=== PATIENT | female | born 1935 | race Caucasian/White ===

== ENCOUNTER 2018-12-29 21:53 | Emergency (ER) | payer MEDICARE ==
[~2018-12-29 21:53] MED LIST: oxyCODONE-APAP 10-325MG 1 EACH TAB PO ONE
--- NOTE | 2018-12-29 22:09 | ED ---
Back Pain HPI - General Chief Complaint: Back Pain/Injury Stated Complaint: Back Pain Time Seen by Provider: 12/29/18 22:02 Source: patient, RN notes reviewed, old records reviewed Limitations: no limitations - History of Present Illness Initial Comments: This is an 83-year-old female the ER for evaluation presents today for evaluation of pain back pain. No history of trauma. No loss of bowel or bladder. No fevers. 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 Otherwise no other significant complaints no other injuries or trauma MD Complaint: back pain, back injury -: days(s) Similar Symptoms Previously: No Place: home Radiation: none Severity: moderate Severity scale (1-10): 4 Quality: dull, aching Improves With: none Worsens With: none Context: while lifting, turning/twisting Associated Symptoms: denies other symptoms - Related Data Home Medications Medication Instructions Recorded Confirmed Losartan [Cozaar] 50 mg PO HS 12/29/18 12/29/18 Previous Rx's Medication Instructions Recorded Cephalexin [Keflex] 500 mg PO Q8HR #21 cap 01/03/19 Ondansetron Odt [Zofran Odt] 4 mg PO Q8HR PRN #12 tab 01/03/19 Phenazopyridine [Pyridium] 100 mg PO TID #9 tablet 01/03/19 Allergies Allergy/AdvReac Type Severity Reaction Status Date / Time bee venom protein (honey bee) Allergy Anaphylaxis Verified 12/29/18 22:53 Penicillins Allergy Swelling Verified 12/29/18 22:53 Review of Systems ROS Statement: Those systems with pertinent positive or pertinent negative responses have been documented in the HPI. ROS Other: All systems not noted in ROS Statement are negative. Past Medical History Past Medical History: Hypertension History of Any Multi-Drug Resistant Organisms: None Reported Past Surgical History: Hysterectomy Past Psychological History: No Psychological Hx Reported Smoking Status: Never smoker Past Alcohol Use History: None Reported Past Drug Use History: None Reported General Exam Limitations: no limitations General appearance: alert, in no apparent distress Head exam: Present: atraumatic, normocephalic, normal inspection Eye exam: Present: normal appearance, PERRL, EOMI. Absent: scleral icterus, conjunctival injection, periorbital swelling ENT exam: Present: normal exam, mucous membranes moist Neck exam: Present: normal inspection. Absent: tenderness, meningismus, lymph adenopathy Respiratory exam: Present: normal lung sounds bilaterally. Absent: respiratory distress, wheezes, rales, rhonchi, stridor Cardiovascular Exam: Present: regular rate, normal rhythm, normal heart sounds. Absent: systolic murmur, diastolic murmur, rubs, gallop, clicks GI/Abdominal exam: Present: soft, normal bowel sounds. Absent: distended, tenderness, guarding, rebound, rigid Extremities exam: Present: normal inspection, full ROM, normal capillary refill. Absent: tenderness, pedal edema, joint swelling, calf tenderness Back exam: Present: normal inspection Neurological exam: Present: alert, oriented X3, CN II-XII intact Psychiatric exam: Present: normal affect, normal mood Skin exam: Present: warm, dry, intact, normal color. Absent: rash Course Vital Signs 12/29/18 12/30/18 21:59 00:32 Temperature 97.6 F 97 F L Pulse Rate 68 66 Respiratory 20 18 Rate Blood Pressure 142/91 136/62 O2 Sat by Pulse 96 98 Oximetry Medical Decision Making - Medical Decision Making 83 male the ER for evaluation lumbar back pain strain, patient is CT which is negative here in the ER and can be discharged home - Radiology Data Radiology results: report reviewed (CT lumbar spine is negative for acute disease), image reviewed Disposition Clinical Impression: Mechanical back pain, Strain of lumbar region Disposition: HOME SELF-CARE Condition: Good Instructions (If sedation given, give patient instructions): Acute Low Back Pain (ED) Is patient prescribed a controlled substance at d/c from ED?: No Referrals: Bunny Reyes MD [Primary Care Provider] - 1-2 days
[2018-12-29] MEDS ORDERED: MORPHINE SULFATE 4 MG/ML SYRINGE IVP STA (22:55)
[2018-12-29] MEDS ORDERED: ONDANSETRON 4 MG/2 ML VIAL IVP STA (23:14)
--- NOTE | 2018-12-29 23:15 | CT ---
EXAM: CT Lumbar Spine Without Intravenous Contrast CLINICAL HISTORY: ITS.REASON CT Reason: Pain. No injury. TECHNIQUE: Axial computed tomography images of the lumbar spine without intravenous contrast. CTDI is 23.47 mGy and DLP is 781.5 mGy-cm. This CT exam was performed using one or more of the following dose reduction techniques: automated exposure control, adjustment of the mA and/or kV according to patient size, and/or use of iterative reconstruction technique. COMPARISON: None. FINDINGS: Bones: Normal alignment. No acute fracture or bony lesion. Osteopenia. Disc spaces: Mild degenerative changes of the spine. Mild spinal canal stenosis at L2-3. Moderate to severe spinal canal stenosis at L3-4. Mild to moderate spinal canal stenosis at L4-5. Mild bilateral neural foraminal stenoses at L3-4 and L4-5. Mild to moderate neural foraminal stenoses at L5-S1. Soft tissues: Normal. Other: Nonspecific bilateral perinephric fat stranding. IMPRESSION: No acute fracture or subluxation. Mild degenerative changes of the spine. Mild spinal canal stenosis at L2-3. Moderate to severe spinal canal stenosis at L3-4. Mild to moderate spinal canal stenosis at L4-5.
[2018-12-29] MEDS ORDERED: ACET/COD 300 MG/30 MG STARTER PACK 6 TAB BTL PO STA (23:26)
[2018-12-29] MEDS ORDERED: KETOROLAC 30 MG/ML 1 ML VIAL IVP STA (23:26)
[2018-12-30] MEDS ORDERED: ONDANSETRON 4 MG ODT STARTER PACK 2 TAB BTL PO STA
[2018-12-30] MEDS ORDERED: oxyCODONE-APAP 10-325MG 1 EACH TAB PO STA (00:12)
[2018-12-30] MEDS ORDERED: ACET/COD 300 MG/30 MG STARTER PACK 6 TAB BTL PO STA (00:24)
[2018-12-30 00:34] VITALS: BP 136/62; PULSE 66; RESP 18; TEMP 97
== END 2018-12-30 00:32 | disposition home or self-care (01) ==
LOC: EC 21:53
DX: S39.012A Strain of muscle, fascia and tendon of lower back, initial encounter (principal); I10 Essential (primary) hypertension; Z88.0 Allergy status to penicillin; Z91.018 Allergy to other foods; Z79.899 Other long term (current) drug therapy; X50.1XXA Overexertion from prolonged static or awkward postures, initial encounter; Y93.89 Activity, other specified; Y92.009 Unspecified place in unspecified non-institutional (private) residence as the place of occurrence of the external cause
CPT/HCPCS: 72131; 99285; 96374; 96375 ×2; J2270; J2405; J1885; S0119

== ENCOUNTER 2019-01-03 06:38 | Emergency (ER) | payer MEDICARE ==
[2019-01-03 06:54] VITALS: BP 164/82; PULSE 84; RESP 17; TEMP 99.1
[2019-01-03 07:18] LABS: Appearance,Urine Cloudy (Clear); Bacteria,Urine Occasional /hpf; Bilirubin,Urine Negative (Negative); Blood,Urine Large (Negative); Color,Urine Light Red; Glucose,Urine (UA) Negative (Negative); Ketones,Urine Negative (Negative); Leukocyte Esterase,Urine Large (Negative); Nitrite,Urine Negative (Negative); Protein,Urine 2+ (Negative); RBC,Urine 10 /hpf (0-5); Specific Gravity,Urine 1.003 (1.001-1.035); Squamous Epithelial Cell,Urine 2 /hpf (0-4); Urobilinogen,Urine <2.0 mg/dL (<2.0)
[2019-01-03] MEDS ORDERED: PHENAZOPYRIDINE 100 MG TAB PO STA (07:25)
[2019-01-03] MEDS ORDERED: ACET/COD 300 MG/30 MG STARTER PACK 6 TAB BTL PO STA (07:25)
[2019-01-03] MEDS ORDERED: CEPHALEXIN 500MG STARTER PACK 4 CAP BTL PO STA (07:25)
[2019-01-03] MEDS ORDERED: ONDANSETRON 4 MG ODT STARTER PACK 2 TAB BTL PO STA (07:25)
--- NOTE | 2019-01-03 07:41 | ED ---
Female Urogenital HPI - General Chief complaint: Urogenital Stated complaint: Female Time Seen by Provider: 01/03/19 06:57 Source: patient, family, RN notes reviewed, old records reviewed Mode of arrival: wheelchair Limitations: no limitations - History of Present Illness Initial comments: Patient is an 83-year-old female status post response today with complaints of dysuria, and hematuria for the past 6 hours. She reports symptoms started at 2 AM. Patient states that she's had no fevers or chills, denies any associated abdominal or back pain. She just complains of spasming in her bladder and she is urinating. Patient states that she's had no previous urinary tract infections. She is currently being treated for chronic back pain. She is scheduled to have her hips replaced and has an appointment tomorrow with Dr. Shekhar silveira for discussing hip replacement. Patient daughter states that she only has one pain pill left. Patient denies any other symptoms. - Related Data Home Medications Medication Instructions Recorded Confirmed Losartan [Cozaar] 50 mg PO HS 12/29/18 12/29/18 Previous Rx's Medication Instructions Recorded Cephalexin [Keflex] 500 mg PO Q8HR #21 cap 01/03/19 Ondansetron Odt [Zofran Odt] 4 mg PO Q8HR PRN #12 tab 01/03/19 Phenazopyridine [Pyridium] 100 mg PO TID #9 tablet 01/03/19 Allergies Allergy/AdvReac Type Severity Reaction Status Date / Time bee venom protein (honey bee) Allergy Anaphylaxis Verified 12/29/18 22:53 Penicillins Allergy Swelling Verified 12/29/18 22:53 Review of Systems ROS Statement: Those systems with pertinent positive or pertinent negative responses have been documented in the HPI. ROS Other: All systems not noted in ROS Statement are negative. Past Medical History Past Medical History: Hypertension History of Any Multi-Drug Resistant Organisms: None Reported Past Surgical History: Hysterectomy Past Psychological History: No Psychological Hx Reported Smoking Status: Never smoker Past Alcohol Use History: None Reported Past Drug Use History: None Reported General Exam - General Exam Comments Initial Comments: Alert and oriented 83-year-old female. No distress. Limitations: no limitations General appearance: alert, in no apparent distress Head exam: Present: atraumatic, normocephalic, normal inspection Eye exam: Present: normal appearance, PERRL, EOMI. Absent: scleral icterus, conjunctival injection, periorbital swelling ENT exam: Present: normal exam, mucous membranes moist Neck exam: Present: normal inspection. Absent: tenderness, meningismus, lymphadenopathy Respiratory exam: Present: normal lung sounds bilaterally. Absent: respiratory distress, wheezes, rales, rhonchi, stridor Cardiovascular Exam: Present: regular rate, normal rhythm, normal heart sounds. Absent: systolic murmur, diastolic murmur, rubs, gallop, clicks GI/Abdominal exam: Present: soft, normal bowel sounds. Absent: distended, tenderness, guarding, rebound, rigid Extremities exam: Present: normal inspection, full ROM, normal capillary refill. Absent: tenderness, pedal edema, joint swelling, calf tenderness Back exam: Present: normal inspection Neurological exam: Present: alert, oriented X3, CN II-XII intact, other (Patient has some lumbar spinal tenderness, muscle spasms.) Psychiatric exam: Present: normal affect, normal mood Skin exam: Present: warm, dry, intact, normal color. Absent: rash Course Vital Signs 01/03/19 06:48 Temperature 99.1 F Pulse Rate 84 Respiratory 17 Rate Blood Pressure 164/82 O2 Sat by Pulse 98 Oximetry Medical Decision Making - Medical Decision Making Pleasant 83-year-old female present today with complaints of dysuria and hematuria. Symptoms started just this morning. Patient has evidence of urinary tract infection, greater than 182 white blood cells. Urine culture completed. Patient will be started on Keflex, and given a starter pack for pain medication due to her chronic back pain and she is scheduled to see orthopedic tomorrow. Patient will be given a dose of Pyridium as well up with a spasm and bladder gerard n. Patient understands treatment plan will comply. Return parameters were discussed. - Lab Data Lab Results 01/03/19 Range/Units 07:06 Urine Color Light Red Urine Appearance Cloudy H (Clear) Urine pH 7.0 (5.0-8.0) Ur Specific [place] 1.003 (1.001-1.035) Urine Protein 2+ H (Negative) Urine Glucose (UA) Negative (Negative) Urine Ketones Negative (Negative) Urine Blood Large H (Negative) Urine Nitrite Negative (Negative) Urine Bilirubin Negative (Negative) Urine Urobilinogen <2.0 (<2.0) mg/dL Ur Leukocyte Esterase Large H (Negative) Urine RBC 10 H (0-5) /hpf Urine WBC >182 H (0-5) /hpf Urine WBC Clumps Many H (None) /hpf Ur Squamous Epith Cells 2 (0-4) /hpf Urine Bacteria Occasional H (None) /hpf Disposition Clinical Impression: Mechanical back pain, Cystitis Disposition: HOME SELF-CARE Condition: Good Instructions (If sedation given, give patient instructions): Urinary Tract Infection in Women (ED) Additional Instructions: Patient advised to take the medications as prescribed. Continue prednisone as instructed. Follow-up tomorrow with Dr. Reyna in regards to hip replacement. Ensure the complete all the antibiotics. Prescriptions: Cephalexin [Keflex] 500 mg PO Q8HR #21 cap Phenazopyridine [Pyridium] 100 mg PO TID #9 tablet Ondansetron Odt [Zofran Odt] 4 mg PO Q8HR PRN #12 tab PRN Reason: Nausea Is patient prescribed a controlled substance at d/c from ED?: No Referrals: Bunny Reyes MD [Primary Care Provider] - 1-2 days Argelia Mai MD [STAFF PHYSICIAN] - 1-2 days Time of Disposition: 07:40
== END 2019-01-03 08:25 | disposition home or self-care (01) ==
LOC: EC 06:38
DX: N30.90 Cystitis, unspecified without hematuria (principal); M54.9 Dorsalgia, unspecified; I10 Essential (primary) hypertension; Z90.710 Acquired absence of both cervix and uterus; Z79.899 Other long term (current) drug therapy; Z91.030 Bee allergy status; Z88.0 Allergy status to penicillin
CPT/HCPCS: 81001; 87086; 99284; S0119; 87077; 87186

== ENCOUNTER 2019-03-10 19:52 | Emergency (ER) | payer MEDICARE ==
[2019-03-10] MEDS ORDERED: ONDANSETRON 4 MG/2 ML VIAL IVP STA (20:50)
[2019-03-10] MEDS ORDERED: MORPHINE SULFATE 4 MG/ML SYRINGE IVP STA (20:50)
--- NOTE | 2019-03-10 22:12 | ED ---
Extremity Problem HPI <Claudy Donaldson - Last Filed: 03/11/19 00:41> - General Source: patient Mode of arrival: wheelchair Limitations: no limitations <Argelia Lagunas - Last Filed: 03/11/19 01:00> - General Chief complaint: Extremity Problem,Nontraumatic Stated complaint: post op fever Time Seen by Provider: 03/10/19 20:28 - History of Present Illness Initial comments: Patient is an 84-year-old female presenting to the emergency Department with complaints of right hip pain since this morning. Patient had a right TKA done last week by Dr. Ladd from [facility], and her left TKA done 6 weeks ago. Patient states her left hip she had no pain and has been healing well. Patient states she has been unable to take her ibuprofen and Tylenol 3's because of upsetting her stomach so she has been without pain medication all day today. Patient is very uncomfortable and is having a hard time getting around. Patient is here with her daughter. Patient states she did take her temperature at home and reports it was 101. Upon arrival to the ER today her temperature is normal. (Argelia Lagunas) - Related Data Home Medications Medication Instructions Recorded Confirmed Losartan [Cozaar] 50 mg PO HS 12/29/18 03/10/19 Ranitidine HCl [Zantac] 75 mg PO HS 03/10/19 03/10/19 Previous Rx's Medication Instructions Recorded Nitrofurantoin Monohyd/M-Cryst 100 mg PO Q12HR 3 Days #6 cap 03/11/19 [Macrobid] Allergies Allergy/AdvReac Type Severity Reaction Status Date / Time bee venom protein (honey bee) Allergy Anaphylaxis Verified 12/29/18 22:53 Penicillins Allergy Swelling Verified 12/29/18 22:53 Review of Systems ROS Other: All systems not noted in ROS Statement are negative. <Claudy Donaldson - Last Filed: 03/11/19 00:41> ROS Other: All systems not noted in ROS Statement are negative. <Argelia Lagunas - Last Filed: 03/11/19 01:00> ROS Statement: Those systems with pertinent positive or pertinent negative responses have been documented in the HPI. Past Medical History Past Medical History: Hypertension History of Any Multi-Drug Resistant Organisms: None Reported Past Surgical History: Hysterectomy, Joint Replacement, Orthopedic Surgery Past Psychological History: No Psychological Hx Reported Smoking Status: Never smoker Past Alcohol Use History: None Reported Past Drug Use History: None Reported <Argelia Lagunas - Last Filed: 03/11/19 01:00> General Exam Limitations: no limitations <Argelia Lagunas - Last Filed: 03/11/19 01:00> - General Exam Comments Initial Comments: GENERAL: Well-appearing, well-nourished and in no acute distress, but appears to be in pain. HEAD: Atraumatic, normocephalic. EYES: Pupils equal round and reactive to light, extraocular movements intact, sclera anicteric, conjunctiva are normal. ENT: TMs normal, nares patent, oropharynx clear without exudates. Moist mucous membranes. NECK: Normal range of motion, supple without lymphadenopathy or JVD. LUNGS: Breath sounds clear to auscultation bilaterally and equal. No wheezes rales or rhonchi. HEART: Regular rate and rhythm without murmurs, rubs or gallops. ABDOMEN: Soft, nontender, normoactive bowel sounds. No guarding, no rebound. No masses appreciated. : Deferred EXTREMITIES: Patient is status post right DAE. Patient has pain with internal and external range of motion. no pitting or edema. No clubbing or cyanosis. NEUROLOGICAL: Cranial nerves II through XII grossly intact. Normal speech, normal gait. PSYCH: Normal mood, normal affect. SKIN: Warm, Dry, normal turgor, no rashes. Patient's surgical incision is warm to the touch around surgical bandage. There is no surrounding erythema. (Argelia Lagunas) Course Vital Signs 03/10/19 03/10/19 20:11 22:11 Temperature 98.9 F 100.3 F H Pulse Rate 88 86 Respiratory 20 17 Rate Blood Pressure 142/68 143/71 O2 Sat by Pulse 95 96 Oximetry Medical Decision Making - Lab Data Result diagrams: 03/10/19 21:57 03/10/19 21:57 <Claudy Donaldson - Last Filed: 03/11/19 00:41> - Lab Data Result diagrams: 03/10/19 21:57 03/10/19 21:57 <Argelia Lagunas - Last Filed: 03/11/19 01:00> - Medical Decision Making I saw this patient in conjunction with the physician safety admin assistant. I performed independent history and physical exam. Agree with case management. Following exam there is concern of early infection at the patient's surgical site. Based on the examis suspicion of septic arthritis. I discussed the case with the patient's orthopedic on-call. I was able reach Dr. Luna who is covering aditi for Dr. Ladd. They would like to see the patient in the clinic in the morning, and did not want us to start any medication at this point. (Claudy Donaldson) Patient is a 84-year-old female presenting with an increase in pain in her right hip. Patient is status post 1 week of right DAE. Patient's surgeon was Dr. Ladd from [facility] in [place]. Patient states she had a fever 101 earlier today. Upon arrival to the ER, patient's temperature is within normal limits. Rest of vital signs are normal. On exam patient has pain with right hip motion, internal and external. Patient's incision site is warm to the t ouch. There is no surrounding erythema. There is some mild edema. CBC/CMP are within normal limits. Lactic acid is 0.9. C-reactive protein is 30.7 UA reveals 12 WBCs. Chest x-ray and right hip x-ray are within normal limits. Case is discussed with Dr. Donaldson. Dr. Luna was covering for Dr. Wilberto pennington and he will see patient in the clinic first thing tomorrow morning. Patient is stable for discharge at this time. Patient will be given Macrobid for possible UTI. Return parameters were discussed with the patient she verbalized understanding. (Argelia Lagunas) - Lab Data Lab Results 03/10/19 03/10/19 03/10/19 Range/Units 21:57 21:57 21:57 WBC 6.8 (3.8-10.6) k/uL RBC 3.51 L (3.80-5.40) m/uL Hgb 10.2 L (11.4-16.0) gm/dL Hct 32.2 L (34.0-46.0) % MCV 91.7 (80.0-100.0) fL MCH 29.0 (25.0-35.0) pg MCHC 31.7 (31.0-37.0) g/dL RDW 13.8 (11.5-15.5) % Plt Count 377 (150-450) k/uL Neutrophils % 64 % Lymphocytes % 21 % Monocytes % 7 % Eosinophils % 6 % Basophils % 1 % Neutrophils # 4.3 (1.3-7.7) k/uL Lymphocytes # 1.4 (1.0-4.8) k/uL Monocytes # 0.5 (0-1.0) k/uL Eosinophils # 0.4 (0-0.7) k/uL Basophils # 0.1 (0-0.2) k/uL Hypochromasia Slight Sodium 137 (137-145) mmol/L Potassium 4.5 (3.5-5.1) mmol/L Chloride 105 (98-107) mmol/L Carbon Dioxide 24 (22-30) mmol/L Anion Gap 8 mmol/L BUN 13 (7-17) mg/dL Creatinine 0.78 (0.52-1.04) mg/dL Est GFR (CKD-EPI)AfAm 81 (>60 ml/min/1.73 sqM) Est GFR (CKD-EPI)NonAf 70 (>60 ml/min/1.73 sqM) Glucose 88 (74-99) mg/dL Plasma Lactic Acid [place] 0.9 (0.7-2.0) mmol/L Calcium 8.5 (8.4-10.2) mg/dL Total Bilirubin 0.3 (0.2-1.3) mg/dL AST 40 H (14-36) U/L ALT 37 (9-52) U/L Alkaline Phosphatase 76 (38-126) U/L C-Reactive Protein (<10.0) mg/L Total Protein 5.9 L (6.3-8.2) g/dL Albumin 3.3 L (3.5-5.0) g/dL Urine Color Urine Appearance (Clear) Urine pH (5.0-8.0) Ur Specific [place] (1.001-1.035) Urine Protein (Negative) Urine Glucose (UA) (Negative) Urine Ketones (Negative) Urine Blood (Negative) Urine Nitrite (Negative) Urine Bilirubin (Negative) Urine Urobilinogen (<2.0) mg/dL Ur Leukocyte Esterase (Negative) Urine RBC (0-5) /hpf Urine WBC (0-5) /hpf Ur Squamous Epith Cells (0-4) /hpf Urine Mucus (None) /hpf 08/14/19 08/14/19 Range/Units 21:57 23:25 WBC (3.8-10.6) k/uL RBC (3.80-5.40) m/uL Hgb (11.4-16.0) gm/dL Hct (34.0-46.0) % MCV (80.0-100.0) fL MCH (25.0-35.0) pg MCHC (31.0-37.0) g/dL RDW (11.5-15.5) % Plt Count (150-450) k/uL Neutrophils % % Lymphocytes % % Monocytes % % Eosinophils % % Basophils % % Neutrophils # (1.3-7.7) k/uL Lymphocytes # (1.0-4.8) k/uL Monocytes # (0-1.0) k/uL Eosinophils # (0-0.7) k/uL Basophils # (0-0.2) k/uL Hypochromasia Sodium (137-145) mmol/L Potassium (3.5-5.1) mmol/L Chloride (98-107) mmol/L Carbon Dioxide (22-30) mmol/L Anion Gap mmol/L BUN (7-17) mg/dL Creatinine (0.52-1.04) mg/dL Est GFR (CKD-EPI)AfAm (>60 ml/min/1.73 sqM) Est GFR (CKD-EPI)NonAf (>60 ml/min/1.73 sqM) Glucose (74-99) mg/dL Plasma Lactic Acid [place] (0.7-2.0) mmol/L Calcium (8.4-10.2) mg/dL Total Bilirubin (0.2-1.3) mg/dL AST (14-36) U/L ALT (9-52) U/L Alkaline Phosphatase (38-126) U/L C-Reactive Protein 30.7 H (<10.0) mg/L Total Protein (6.3-8.2) g/dL Albumin (3.5-5.0) g/dL Urine Color Light Yellow Urine Appearance Clear (Clear) Urine pH 6.5 (5.0-8.0) Ur Specific [place] 1.008 (1.001-1.035) Urine Protein Negative (Negative) Urine Glucose (UA) Negative (Negative) Urine Ketones Negative (Negative) Urine Blood Negative (Negative) Urine Nitrite Negative (Negative) Urine Bilirubin Negative (Negative) Urine Urobilinogen <2.0 (<2.0) mg/dL Ur Leukocyte Esterase Moderate H (Negative) Urine RBC <1 (0-5) /hpf Urine WBC 12 H (0-5) /hpf Ur Squamous Epith Cells <1 (0-4) /hpf Urine Mucus Rare H (None) /hpf Disposition <Claudy Donaldson - Last Filed: 03/11/19 00:41> Is patient prescribed a controlled substance at d/c from ED?: No <Argelia Lagunas - Last Filed: 03/11/19 01:00> Clinical Impression: Right hip pain, Febrile, Status post right hip replacement Disposition: HOME SELF-CARE Condition: Stable Instructions (If sedation given, give patient instructions): Hip Pain (ED) Additional Instructions: Please return to the Emergency Department if symptoms worsen or any other concerns. Follow-up with Dr. Ladd and his clinic tomorrow morning. Prescriptions: Nitrofurantoin Monohyd/M-Cryst [Macrobid] 100 mg PO Q12HR 3 Days #6 cap Referrals: Bunny Reyes MD [Primary Care Provider] - 1-2 days
[2019-03-10] MEDS ORDERED: ACETAMINOPHEN TAB 325 MG TAB PO STA (22:16)
[2019-03-10 22:36] LABS: Albumin 3.3 g/dL (3.5-5.0); Calcium 8.5 mg/dL (8.4-10.2); Potassium 4.5 mmol/L (3.5-5.1); Total Bilirubin 0.3 mg/dL (0.2-1.3); Total Protein 5.9 g/dL (6.3-8.2)
[2019-03-10 22:37] LABS: Basophils # (A) 0.1 k/uL (0-0.2); Basophils % (A) 1 %; Eosinophils # (A) 0.4 k/uL (0-0.7); Eosinophils % (A) 6 %; HCT 32.2 % (34.0-46.0); HGB 10.2 gm/dL (11.4-16.0); Hypochromasia Slight; Lymphocytes # (A) 1.4 k/uL (1.0-4.8); Lymphocytes % (A) 21 %; MCHC 31.7 g/dL (31.0-37.0); MCV 91.7 fL (80.0-100.0); Mean Platelet Volume 7.3; Monocytes # (A) 0.5 k/uL (0-1.0); Monocytes % (A) 7 %; Neutrophils # (A) 4.3 k/uL (1.3-7.7); Neutrophils % (A) 64 %; Platelet Count 377 k/uL (150-450); RBC 3.51 m/uL (3.80-5.40); RDW 13.8 % (11.5-15.5); WBC 6.8 k/uL (3.8-10.6)
--- NOTE | 2019-03-10 23:10 | XR ---
EXAM: XR Right Hip With Pelvis When Performed, 2 or 3 Views CLINICAL HISTORY: ITS.REASON XR Reason: s/p DAE, fever TECHNIQUE: Two or three views of the right hip, with pelvis when performed. COMPARISON: No relevant prior studies available. FINDINGS: Bones/joints: Right hip prosthesis. No osseous or hardware fracture. Normal alignment. No evidence of infection or loosening. Soft tissues: Unremarkable. IMPRESSION: Unremarkable prosthetic right hip.
--- NOTE | 2019-03-10 23:18 | XR ---
EXAM: XR Chest, 2 Views CLINICAL HISTORY: ITS.REASON XR Reason: fever, post op TECHNIQUE: Frontal and lateral views of the chest. COMPARISON: No relevant prior studies available. FINDINGS: Lungs: Unremarkable. No consolidation. Pleural space: Unremarkable. No pneumothorax. Heart: Unremarkable. No cardiomegaly. Mediastinum: Unremarkable. Bones/joints: Mild degenerative changes. IMPRESSION: No evidence of acute pulmonary disease.
[2019-03-10 23:36] LABS: Appearance,Urine Clear (Clear); Bilirubin,Urine Negative (Negative); Blood,Urine Negative (Negative); Color,Urine Light Yellow; Glucose,Urine (UA) Negative (Negative); Ketones,Urine Negative (Negative); Leukocyte Esterase,Urine Moderate (Negative); Mucus,Urine Rare /hpf; Nitrite,Urine Negative (Negative); PH, Urine 6.5 (5.0-8.0); Protein,Urine Negative (Negative); RBC,Urine <1 /hpf (0-5); Specific Gravity,Urine 1.008 (1.001-1.035); Squamous Epithelial Cell,Urine <1 /hpf (0-4); Urobilinogen,Urine <2.0 mg/dL (<2.0)
[2019-03-11] MEDS ORDERED: MORPHINE SULFATE 2 MG/ML SYRINGE IVP ONE (00:35)
[2019-03-11 01:02] VITALS: BP 111/62; PULSE 80; RESP 18; TEMP 98.2
== END 2019-03-11 01:08 | disposition home or self-care (01) ==
LOC: EC 19:52
DX: R50.82 Postprocedural fever (principal); G89.18 Other acute postprocedural pain; M25.551 Pain in right hip; I10 Essential (primary) hypertension; Z79.899 Other long term (current) drug therapy; Z88.0 Allergy status to penicillin; Z91.030 Bee allergy status; Z96.641 Presence of right artificial hip joint
CPT/HCPCS: 36415 ×2; 80053; 85652; 83605; 85025; 86140; 81001; 87040; 87086; 73502; 71046; 99283; 96374; 96375; 96376; J2270 ×2; J2405